=== PATIENT | female | born 1985 | race Caucasian/White ===

== ENCOUNTER 2023-03-04 09:06 | Emergency (ER) | payer OTHER, SELFPAY ==
[2023-03-04 09:10] VITALS: BP 168/104; PULSE 90; RESP 16; TEMP 35.8; O2SAT 100; BMI 27.3
--- NOTE | 2023-03-04 09:25 | DI.RAD.S_ITS ---
PROCEDURE: XR CHEST 1V INDICATIONS: chest pain TECHNIQUE: One view of the chest was acquired. COMPARISON: None. FINDINGS: Surgical changes and devices: None. Lungs and pleura: Lungs are clear. No pleural effusions or pneumothorax. Mediastinum: Mediastinal contours appear normal. Heart size is normal. Bones and chest wall: No suspicious bony lesions. Overlying soft tissues appear unremarkable. IMPRESSION: No acute cardiopulmonary abnormality identified. Dictated by: Sreedhar Bone D.O. on 03/04/2023 at 8:50 Approved by: Sreedhar Bone D.O. on 03/04/2023 at 8:51
--- NOTE | 2023-03-04 09:25 | ED.PSYCH ---
HPI - Psych General Chief Complaint: Anxiety Stated Complaint: diff breathing, anxiety Time Seen by Provider: 03/04/23 09:25 History of Present Illness HPI Narrative: Patient is a 37-year-old female history of anxiety presents today with sudden onset of chest discomfort radiating to her left shoulder lasted briefly. She and her best friends are on vacation on their way to [place] [employer] [place]. She reports that she is not anxious about going on the boat anything like that. This feels significantly different than other anxiety attacks. She reports that she drank alcohol last night she did not take her phentermine this morning. (she usually takes 1.5 tablets daily but did not today.) Denies any shortness of breath nausea or vomiting. She reports that she did get clammy in the car. She had some carpal spasms as well. She took Xanax 0.25 mg. She is visiting from [place] she is not currently on control. No history of DVT or PE. Review of Systems Review of Systems ROS Unobtainable: All systems reviewed & are unremarkable except as noted in HPI and below Patient History Social History Smoking Status: Current every day smoker Smoking Status: Current every day smoker Substance Use Type: does not use Exam Initial Vital Signs Initial Vital Signs: Vital Signs Temperature 96.5 F L 03/04/23 09:10 Pulse Rate 90 03/04/23 09:10 Respiratory Rate 16 03/04/23 09:10 Blood Pressure 168/104 H 03/04/23 09:10 Pulse Oximetry 100 03/04/23 09:10 Oxygen Delivery Method Room Air 03/04/23 09:10 GENERAL: Alert pleasant well-appearing 35-year-old female HEENT: Head atraumatic,EOMI, pupils reactive, face symmetric, moist mucous membranes CARDIOVASCULAR: Regular rate and rhythm without murmurs, rubs or gallops. RESPIRATORY: Breath sounds equal bilaterally, no wheezes rales or rhonchi. ABDOMEN: Soft, nontender. Normoactive bowel sounds all 4 quadrants. No guarding or rebound. EXTREMITIES: Normal range of motion, no clubbing or edema. Neurovascularly intact NEUROLOGICAL: Alert and oriented x4. SKIN: Warm, dry, no laceration, no petechiae, no rashes or lesions. Scores PERC Score Age greater than or equal to 50 years: No Heart rate greater than or equal to 100 bpm: No Room Air O2 Sat less than 95%: No Unilateral leg swelling: No Recent trauma or surgery: No Hemoptysis: No Prior PE or DVT: No Hormone Use: No Total PERC Score: 0 Course Orders Ordered: ED Orders 03/04/23 09:25 XR chest 1V Stat EKG-12 Lead Stat Vital Signs Vital signs: Vital Signs - 8 hr 03/04/23 09:10 Temperature 96.5 F L Pulse Rate 90 Respiratory Rate 16 Blood Pressure 168/104 H Pulse Oximetry 100 Oxygen Delivery Method Room Air MDM - Psych Imaging Data Chest x-ray: Radiologist's Impression: PROCEDURE:? XR CHEST 1V ? INDICATIONS:? chest pain ? TECHNIQUE:? One view of the chest was acquired.? ? COMPARISON:? None. ? FINDINGS:? ? Surgical changes and devices:? None.? ? Lungs and pleura:? Lungs are clear.? No pleural effusions or pneumothorax.? ? Mediastinum:? Mediastinal contours appear normal.? Heart size is normal.? ? Bones and chest wall:? No suspicious bony lesions.? Overlying soft tissues appear unremarkable.? ? IMPRESSION:? ? No acute cardiopulmonary abnormality identified. ? ? Dictated by: Sreedhar Bone D.O. on 03/04/2023 at 8:50 ? ? ECG Data Interpretation: Normal sinus rhythm rate 91 MI interval 130 QRS [address] changes or T-wave inversions no priors to compare MDM Narrative Medical decision making narrative: Patient is a 37-year-old female who presents with sudden-onset chest pain and then difficulty breathing. She had some carpal spasms consistent with anxiety she has a history of an anxiety reaction. Symptoms completely resolved when she got to the ER. Mildly hypertensive but not tachycardic or hypoxic. EKG does not show any abnormal intervals or ST changes concerning for ischemia. Chest x-ray does not show any pneumothorax or pneumonia. Low suspicion for pulmonary embolism her PERC score is 0. We talked about blood work however declined at this time which I agree with. She really seems like she calmed down with it and anxiety medication. I do not think this is related to the diet pill that she is taking she also did not take that this morning. Does not sound like the episode lasted very long. Another possibility may have been a brief arrhythmia but she is in normal sinus here in the ED. Discussed with her if she should have any new or worsening symptoms to call 911 and return to the emergency department. Discharge Plan Departure Patient Disposition: Home Clinical Impression: Anxiety reaction Instructions: DI for Anxiety -- Adult Activity Restrictions/Additional Instructions: I think the reaction you had today was anxiety related for an unknown reason. Please try to enjoy your day, sorry about missing your well watch. I recommend not taking her phentermine today. Please return to emergency department if she you should have new or worsening symptoms including worsening chest pain shortness of breath palpitations dizziness passing out or any other concerning symptoms. Please follow-up with your primary care provider in 2-3 days or when you return home. [employer]: Nita Echeverria [employer], [place]- [facility] Places: [facility]. [facility] Stand Alone Forms: Patient Portal/API
--- NOTE | 2023-03-04 10:00 | PC.NURSE ---
pt reports she has h/o anxiety--usually takes xanax in which she took HAIR DRYER from her home meds. States she is on vacation with her friends and was on her way to a [employer] watching tour when she suddenly was overcome wit panic in the car. Arrives to registration crying, SOB, reports tingling in the hands and feet. Pt was calmed and HR 80's. Reports she drank heavily yesterday which is a trigger for her as well as takes phentermine and wellbutrin. EKG obtained and in triage. NAD at this time and pt's symptoms have improved.
== END 2023-03-04 10:04 | disposition home or self-care (01) ==
LOC: ED 10:03
PROVIDERS: Emergency Provider Emergency Medicine
DX: R07.9 Chest pain, unspecified (principal); F41.1 Generalized anxiety disorder
CPT/HCPCS: 71045; 93005; 93010; 99283